=== PATIENT | female | born 1960 | race Caucasian/White ===

== ENCOUNTER 2017-01-19 12:02 | Emergency (ER) | payer MEDICARE | END 2017-01-19 13:55 | disposition home or self-care (01) | LOC: MADERS 12:02 | DX: L74.0 Miliaria rubra (principal); I10 Essential (primary) hypertension | CPT/HCPCS: 99282 ==

== ENCOUNTER 2018-05-21 10:53 | Outpatient (CLI) | payer MEDICARE ==
--- NOTE | 2018-05-21 12:44 | RAD ---
FIVE VIEWS LUMBAR SPINE: History: Lumbago. Pain. Comparison: None. FINDINGS: There are five lumbar type vertebral bodies. Lumbar spine vertebral body height is maintained. No fra cture. There is loss of disc space height and osteophyte formation with vacuum disc phenomenon at T12 -L1, L1-2 and L4-5. Mild atherosclerosis of the abdominal aorta is noted. In the neutral position, there is straightening of the normal lumbar lordosis. There is 2.7 mm of anterolisthesis of L4 upon L5. Upon flexion, there is 2.3 mm of anterolisthesis of L4 upon L5. Upon extension, anterolisthesis resolves. There are degenerative changes with hypertrophy of the posterior elements at L3-4, L4-5, and L5-S1. IMPRESSION: 1. Degenerative changes of the lumbar spine as above. 2. Grade I anterolisthesis of L4 upon L5. POS: DUYEN
== END 2018-05-21 10:54 | disposition home or self-care (01) ==
LOC: MADRAD 10:53
PROVIDERS: ATTEND Obstetrics & Gynecology
DX: M54.5 Low back pain (principal); M47.816 Spondylosis without myelopathy or radiculopathy, lumbar region; M43.16 Spondylolisthesis, lumbar region
CPT/HCPCS: 72120